=== PATIENT | female | born 2000 | race Caucasian/White ===

== ENCOUNTER 2023-04-30 17:44 | Emergency (ER) | payer BC, OTHER, SELFPAY ==
[2023-04-30] VITALS (27 sets, daily range): BP systolic 87–127; BP diastolic 41–90; PULSE 78–129; RESP 12–25; TEMP 36.6; O2SAT 93–117; BMI 19.4
--- NOTE | 2023-04-30 18:13 | ECG_ITS ---
[facility] Test Date: 2023-04-30 Pat Name: JESSIKA EDWARDS Department: Room: - Gender: Female [employer] Scientist: : 2000 Requested By: BOUCHRA LONG Order Number: [id number] Reading MD: ANNO MUSTAFA Measurements Intervals [place] Rate: 106 P: 69 MN: 116 QRS: 87 QRSD: 76 T: 33 QT: 334 QTc: 396 Interpretive Statements 1120 Sinus tachycardia 2210 Short MN interval 0102 ARTIFACT PRESENT 9150 abnormal ECG No previous ECG available for comparison Electronically Signed On 05-01-2023 6:55:23 EDT by NANO MUSTAFA
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
[2023-04-30 18:21] LABS: Basophils Percent Auto 0.6 % (0.2-2.0); Eosinophils Absolute Auto 0.1 10^3/uL (0.0-0.7); Eosinophils Percent Auto 1.8 % (0.9-7.0); Hematocrit 37.8 % (36.0-48.0); Hemoglobin 12.7 g/dL (12.0-16.0); Immature Granulocytes Abs Auto 0.03 10^3/uL (0.00-0.03); Immature Granulocytes Pct Auto 0.4 % (0.0-0.5); Lymphocytes Absolute Auto 1.9 10^3/uL (1.2-3.8); Lymphocytes Percent Auto 26.2 % (20.5-60.0); Mean Corpuscular HGB Conc 33.6 g/dL (29.9-35.2); Mean Corpuscular Hemoglobin 30.5 pg (26.7-34.0); Mean Corpuscular Volume 90.9 fL (81.0-99.0); Mean Platelet Volume 11.5 fL (9.5-13.5); Monocytes Absolute Auto 0.8 10^3/uL (0.3-0.8); Monocytes Percent Auto 11.8 % (1.7-12.0); Neutrophils Absolute Auto 4.2 10^3/uL (1.4-6.5); Neutrophils Percent Auto 59.2 % (43.0-75.0); Platelet Count 239 10^3/uL (150-450); Red Blood Count 4.16 10^6/uL (4.20-5.40); Red Cell Distribution Width 11.5 % (11.0-15.0); White Blood Count 7.1 10^3/uL (4.0-11.0)
[2023-04-30 18:22] LABS: Bilirubin Urine NEGATIVE (NEGATIVE); Blood Urine TRACE-I (NEGATIVE); Clarity Urine CLEAR (CLEAR); Color Urine LT. YELLOW (YELLOW); Glucose Urine UA NEGATIVE (NEGATIVE); Ketones Urine NEGATIVE (NEGATIVE); Leukocyte Esterase Urine NEGATIVE (NEGATIVE); Nitrite Urine NEGATIVE (NEGATIVE); Protein Urine NEGATIVE (NEG/TRACE); Specific Gravity Urine <=1.005 (1.005-1.025); Urobilinogen Urine 0.2 EU/dL (0.2-1.0)
[2023-04-30 18:23] LABS: Urine Microscopic Indicated YES
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
[2023-04-30 18:31] LABS: Bacteria Urine TRACE #/HPF (NONE SEEN); Cast Seen? NONE SEEN #/LPF (NONE SEEN); Crystals Seen? None Seen #/HPF (None Seen); Mucus Urine NONE SEEN (NONE SEEN); RBC Urine 0-2 #/HPF (0-2); Squamous Epithelial Cell Urine FEW #/LPF (NONE/RARE); Urine Culture Indicated NO; WBC Urine 0-2 #/HPF (NONE SEEN)
[2023-04-30 18:32] LABS: Amphetamine Screen Urine NEGATIVE (NEGATIVE); Benzodiazepines Screen Urine NEGATIVE (NEGATIVE); Cannabinoid Screen Urine NEGATIVE (NEGATIVE); Cocaine Screen Urine NEGATIVE (NEGATIVE); Methadone Screen Urine NEGATIVE (NEGATIVE); Methamphetamines Screen Urine NEGATIVE (NEGATIVE); Opiate Screen Urine NEGATIVE (NEGATIVE); Phencyclidine Screen Urine NEGATIVE (NEGATIVE); Tricyclic Antidepressant Urine NEGATIVE (NEGATIVE)
[2023-04-30 18:33] LABS: Barbiturates Screen Urine NEGATIVE (NEGATIVE); Buprenorphine Screen Urine NEGATIVE (NEGATIVE); Oxycodone Screen Urine NEGATIVE (NEGATIVE)
[2023-04-30 18:36] LABS: Alanine Aminotransferase 17 U/L (14-59); Albumin Globulin Ratio 1.2; Albumin Level 4.5 g/dL (3.4-5.0); Alkaline Phosphatase 87 U/L (46-116); Anion Gap 18.1; Aspartate Amino Transferase 12 U/L (15-37); BUN Creatinine Ratio 17.9; Bilirubin Total 0.3 mg/dL (0.2-1.0); Calcium 8.9 mg/dL (8.5-10.1); Chloride 103 mmol/L (98-107); Estimated GFR (African America >60 (>=60); Estimated GFR (Non-African Ame >60 (>=60); Ethanol 158 mg/dL; Globulin 3.6 g/dL; Glucose 97 mg/dL (74-106); Potassium 3.1 mmol/L (3.5-5.1); Sodium 138 mmol/L (136-145); Total Protein 8.1 g/dL (6.4-8.2)
[2023-04-30] MEDS: LORAZEPAM 2 MG/ML 1 ML VIAL 0.5 MG IV (18:36)
[2023-04-30] MEDS: 0.9 % SODIUM CHLORIDE 1,000 ML 999 ML IV (18:36)
[2023-04-30 18:49] LABS: HCG Qualitative NEGATIVE (NEGATIVE)
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
[2023-04-30] MEDS: POTASSIUM CHLORIDE 10 MEQ ER TABLET 40 MEQ PO (19:38)
== END 2023-04-30 21:41 | disposition home or self-care (01) ==
PROVIDERS: Emergency Provider Emergency Medicine; PCP Family Medicine
DX: F10.129 Alcohol abuse with intoxication, unspecified (principal); F41.9 Anxiety disorder, unspecified; Y90.6 Blood alcohol level of 120-199 mg/100 ml; S40.022A Contusion of left upper arm, initial encounter; S40.021A Contusion of right upper arm, initial encounter; Y04.2XXA Assault by strike against or bumped into by another person, initial encounter
CPT/HCPCS: 36415; 70450; 70486; 80053; 80307; 80320; 81001; 84703; 85025; 93005; 96374; 99285

== ENCOUNTER 2024-06-13 17:59 | Emergency (ER) | payer OTHER, SELFPAY ==
[2024-06-13 18:04] VITALS: BP 127/78; PULSE 83; TEMP 36.9; O2SAT 127; BMI 23.3
--- NOTE | 2024-06-13 18:16 | ED_ITS ---
HPI - Female Genitourinary General Chief complaint: Urogenital-Female Stated complaint: [place] Infection Time Seen by Provider: 06/13/24 18:00 Source: patient Mode of arrival: walk-in Limitations: no limitations History of Present Illness HPI Narrative: Patient is a 23-year-old female who presents to the emergency department to be treated for gonorrhea. She states she has had burning with urination and burning in the vaginal area for 2 days. She called her PCP office and was placed on Macrobid without any testing performed. She states she was called today by her boyfriend who informed her that he tested positive for gonorrhea. She denies fevers, chills, nausea, vomiting, flank or back pain. She has not had any vaginal bleeding or discharge. When questioned if she may be , patient states she does not know and she took a test which could possibly have been positive. Related Data Previous Rx's ?Medication ?Instructions ?Recorded doxycycline hyclate 100 mg tablet 100 mg PO BID 7 days #14 tabs 06/13/24 ondansetron 4 mg disintegrating 4 mg PO Q6H PRN nausea and 06/13/24 tablet vomiting #12 tabs Allergies Allergy/AdvReac Type Severity Reaction Status Date / Time No Known Drug Allergies Allergy Verified 06/13/24 18:04 Review of Systems ROS Constitutional Denies: fever or chills Ears, nose, mouth, and throat Denies: throat pain or nasal congestion Respiratory Denies: shortness of breath Gastrointestinal Denies: abdominal pain, nausea or vomiting Musculoskeletal Denies: back pain or neck pain Integumentary/Breast Denies: rash Hematologic/Lymphatic Denies: easy bruising or easy bleeding PFSH PFSH Social History Little interest or pleasure in doing things: not at all Feeling down, depressed, or hopeless: not at all Exam Narrative Exam Narrative: Gen.: Awake, alert, in no distress Head: Normocephalic, atraumatic ENT: Moist mucous membranes Respiratory: No respiratory distress Back: No CVA tenderness Gastrointestinal: Abdomen is soft, nondistended and nontender to palpation Extremities: Moves extremities equally Psych: Normal mood and affect Neuro: No focal neuro deficit Skin: Warm, dry, intact Constitutional Vital Signs, click to edit/add: Last Vital Signs Temp 98.5 F 06/13/24 18:04 Pulse 83 06/13/24 18:04 Resp 20 06/13/24 18:04 BP 127/78 06/13/24 18:04 Pulse Ox 100 06/13/24 18:22 O2 Del Method Room Air 06/13/24 18:04 Course Vital Signs Vital signs: Vital Signs Temperature 98.5 F 06/13/24 18:04 Pulse Rate 83 06/13/24 18:04 Respiratory Rate 20 06/13/24 18:04 Blood Pressure 127/78 06/13/24 18:04 Pulse Oximetry 127 H 06/13/24 18:04 Oxygen Delivery Method Room Air 06/13/24 18:04 Temperature 98.5 F 06/13/24 18:04 Pulse Rate 83 06/13/24 18:04 Respiratory Rate 20 06/13/24 18:04 Blood Pressure 127/78 06/13/24 18:04 Pulse Oximetry 100 06/13/24 18:22 Oxygen Delivery Method Room Air 06/13/24 18:04 MDM - Female Genitourinary MDM Narrative Medical decision making narrative: Patient was unsure if she may be so a test was ordered, she has a contaminated urinary specimen and a negative test. She was treated with Rocephin in the ER and discharged home on doxycycline. She was encouraged to stop the Macrobid as the exposure to gonorrhea is likely causing her burning. Follow-up with [facility] and return to the ER if symptoms change or worsen. She was strongly encouraged not to have any sexual activity until her partner is also completely treated for gonorrhea. SHARED APC VISIT, PHYSICIAN ATTESTATION: [id number] I performed a substantive part of the MDM during the patient?s E/M visit. I personally evaluated and examined the patient. I personally made or approved the documented management plan and acknowledge its risk of complications. Medical Records Attestation: I reviewed the patient's medical records. Lab Data Attestation: I reviewed the patient's lab results. Labs: Lab Results 06/13/24 Range/Units 18:20 Urine Color Yellow (YELLOW) Urine Clarity Clear (CLEAR) Urine pH 6.0 (5.0-9.0) Ur Specific [place] >=1.030 A (1.005-1.025) Urine Protein 30 A (NEG/TRACE) mg/dL Urine Glucose (UA) Negative (NEGATIVE) mg/dL Urine Ketones Negative (NEGATIVE) mg/dL Urine Occult Blood Large A (NEGATIVE) Urine Nitrite Negative (NEGATIVE) Urine Bilirubin Negative (NEGATIVE) Urine Urobilinogen 0.2 (0.2-1.0) EU/dL Ur Leukocyte Esterase Negative (NEGATIVE) Urine RBC 10-20 A (0-2) #/HPF Urine WBC 10-20 A (NONE SEEN) #/HPF Ur Squamous Epith Cells Many A (NONE/RARE) #/LPF Ur Transition Epith Cell Rare A (NONE SEEN) #/LPF Urine Crystals None seen (None Seen) #/HPF Urine Bacteria Moderate A (NONE SEEN) #/HPF Urine Casts Seen A (NONE SEEN) #/LPF Hyaline Casts Few Urine Mucus Large A (NONE SEEN) Ur Culture Indicated? Yes Urine HCG, Qual Negative (NEGATIVE) Discharge Plan Discharge Chief Complaint: Urogenital-Female Clinical Impression: Exposure to STD Patient Disposition: Home, Self-Care Time of Disposition Decision: 19:06 Condition: Good Prescriptions / Home Meds: New ondansetron 4 mg tablet,disintegrating 4 mg PO Q6H PRN (Reason: nausea and vomiting) Qty: 12 0RF doxycycline hyclate 100 mg tablet 100 mg PO BID 7 Days Qty: 14 0RF Print Language: Frisian Instructions: Sexually Transmitted Diseases (ED) Referrals: BOUCHRA LONG [Primary Care Provider] - 1 week
[2024-06-13 18:22] VITALS: O2SAT 100
[2024-06-13 18:40] LABS: Bilirubin Urine NEGATIVE (NEGATIVE); Blood Urine LARGE (NEGATIVE); Clarity Urine CLEAR (CLEAR); Color Urine YELLOW (YELLOW); Glucose Urine UA NEGATIVE (NEGATIVE); Ketones Urine NEGATIVE (NEGATIVE); Leukocyte Esterase Urine NEGATIVE (NEGATIVE); Nitrite Urine NEGATIVE (NEGATIVE); Protein Urine 30 mg/dL (NEG/TRACE); Specific Gravity Urine >=1.030 (1.005-1.025); Urobilinogen Urine 0.2 EU/dL (0.2-1.0)
[2024-06-13] MEDS: CEFTRIAXONE 500 MG VIAL IM (18:40)
[2024-06-13 18:44] LABS: HCG Qualitative Urine* NEGATIVE (NEGATIVE)
[2024-06-13 18:45] LABS: Internal Control Within Normal Limits
[2024-06-13 18:50] LABS: Urine Microscopic Indicated YES
[2024-06-13 18:58] LABS: Bacteria Urine MODERATE #/HPF (NONE SEEN); Cast Seen? SEEN #/LPF (NONE SEEN); Crystals Seen? None Seen #/HPF (None Seen); Hyaline Casts Urine FEW; Mucus Urine LARGE (NONE SEEN); Squamous Epithelial Cell Urine MANY #/LPF (NONE/RARE); Transitional Epi Cells Urine RARE #/LPF (NONE SEEN)
[2024-06-13 18:59] LABS: Urine Culture Indicated YES
[2024-06-17 20:08] LABS: Neisseria gonorrhoeae, NAA Negative (Negative)
== END 2024-06-13 19:15 | disposition home or self-care (01) ==
PROVIDERS: Physician Assistant; Emergency Provider Emergency Medicine; PCP Family Medicine
DX: Z20.2 Contact with and (suspected) exposure to infections with a predominantly sexual mode of transmission (principal)
CPT/HCPCS: 81001; 84703; 87086; 87491; 87591; 99284; J0696